=== PATIENT | male | born 1960 | race African-American/Black ===

== ENCOUNTER 2017-05-28 10:47 | Day surgery (SDC) | payer OTHER ==
[2017-05-27 14:33] VITALS: BMI 25.8
[~2017-05-28 10:47] MED LIST: ceFAZolin SODIUM 1 GM VIAL IVPB ONE
--- NOTE | 2017-05-28 11:49 | HP ---
History & Physical Update - History History: No Change - Physical Physical: No Change - Assessment Assessment: No Change - Plan Plan: No Change
--- NOTE | 2017-05-28 11:50 | OP ---
Operative Note - Note: Operative Date: 05/28/17 Pre-Operative Diagnosis: prostate cancer Operation: prostate cryoablation and cystoscopy Surgeon: Landry Germain Anesthesiologist/OFFAL TRIMMER: Maria Esther Nwe Anesthesia: General Estimated Blood Loss (mls): 0 Drains & Tubes with Location: 18 fr mirza Operative Report Dictated: Yes
[2017-05-28] MEDS ORDERED: oxyCODONE HCL 5 MG TABLET PO PRN ×2 (12:35)
[2017-05-28] MEDS ORDERED: ONDANSETRON 4 MG/2 ML VIAL IVPUSH PRN (12:35)
[2017-05-28] MEDS ORDERED: DEXAMETHASONE SOD PHOSPHATE 4 MG/1 ML VIAL ONE (12:47)
[2017-05-28] MEDS ORDERED: PROPOFOL 20 ML ONE (12:47)
[2017-05-28] MEDS ORDERED: LIDOCAINE HCL 2% 100 MG/5 ML DISP.SYRIN ONE (12:47)
[2017-05-28] MEDS ORDERED: ROCURONIUM BROMIDE 50 MG/5 ML VIAL ONE (12:47)
[2017-05-28] MEDS ORDERED: MIDAZOLAM HCL 2 MG/2 ML SINGLE DOSE VIAL ONE (12:48)
[2017-05-28] MEDS ORDERED: ceFAZolin SODIUM 1 GM VIAL IVPB ONE (13:40)
[2017-05-28] MEDS ORDERED: ceFAZolin SODIUM 1 GM VIAL ONE (13:49)
[2017-05-28 17:25] VITALS: PULSE 75; TEMP 98
[2017-05-28 17:59] VITALS: BP 138/80
--- NOTE | 2017-05-28 20:10 | OP ---
DATE OF OPERATION: 05/28/2017 PREOPERATIVE DIAGNOSIS: Prostate cancer. POSTOPERATIVE DIAGNOSIS: Prostate cancer. PROCEDURE: Prostate cryoablation and cystoscopy. SURGEON: Landry Wesley M.D. PRINTED CIRCUIT BOARD ASSEMBLER: None. ANESTHESIA: General. ANESTHESIOLOGIST: Maria Esther New M.D. SPECIMEN: None. CULTURES: None. DRAINS: An 18-Uzbek Dinh catheter. ESTIMATED BLOOD LOSS: Negligible. COMPLICATIONS: None. DESCRIPTION OF PROCEDURE: The patient was brought in the operating room and placed on the operating room table in the supine position. After administration of general anesthesia via endotracheal tube, intravenous antibiotics were administered. Sequential compression devices were placed. The patient was placed in the dorsal lithotomy position. The perineum was shaved first and the perineum and genitals were prepped and draped in usual sterile manner. An 18-Uzbek Dinh catheter was placed per urethra. Then, 10 mL were placed in the balloon and the bladder was filled with 300 mL of sterile normal saline and clamped. The transrectal ultrasound probe was inserted into the rectum and transrectal ultrasound of the prostate was done. Measurements were taken. Planning was done for the focal prostate cryoablation of the right side of the prostate. Once the plan was completed, the three cryoprobes were first tested and then inserted into the proper location. Now, two temperature sensors were placed, one in Denonvilliers' fascia and one in the external sphincter. Measurements were taken for length and each probe was set to the proper length. The Dinh catheter was removed and cystoscopy was performed. This demonstrated a normal anterior urethra. The prostatic urethra measured approximately 3.5 cm in length, demonstrating mild bilobar intrusion. There were no probes penetrating the prostatic urethra. The bladder was entered and thoroughly inspected. There were no foreign bodies, tumors, stones or inflammation in both ureteral orifices when the usual location with clear efflux bilaterally. No cryoprobes were seen within the bladder. Now, a Super Stiff guidewire was passed through the cystoscope into the bladder and the cystoscope was removed. The urethral warmer was now inserted over the guidewire and then the guidewire was removed. Urethral warming was started. Now, prostate cryoablation was done with two freeze-thaw cycles. At the end of the procedure, the probes were removed, leaving the urethral warmer in place for an additional 5 minutes. Direct pressure was placed on the perineum. Hemostasis was achieved. The urethral warmer was removed. A sterile compressive dressing of a 4 x 4 and Tegaderm was placed. Dinh catheter drainage was clear at the end of the procedure. After removing the urethral warmer, the 18-Uzbek Dinh catheter was replaced. He tolerated the procedure well and was transferred to recovery in stable condition. LANDRY WESLEY M.D. [id number]
== END 2017-05-28 17:30 | disposition home or self-care (01) ==
LOC: JASU-SURG 10:47
PROVIDERS: ATTEND Urology
PROC: 0V507ZZ Destruction of Prostate, Via Natural or Artificial Opening (ICD-10-PCS; principal; 2017-05-28 13:30)
DX: C61 Malignant neoplasm of prostate (principal)
CPT/HCPCS: 55873; C2618; 94760

== ENCOUNTER 2019-02-23 08:37 | Day surgery (SDC) | payer OTHER ==
[2019-02-22 13:40] VITALS: BMI 25.8
[2019-02-23] MEDS ORDERED: oxyCODONE HCL 5 MG TABLET PO PRN ×2 (08:58)
[2019-02-23] MEDS ORDERED: ONDANSETRON 4 MG/2 ML VIAL IVPUSH PRN (08:58)
[2019-02-23] MEDS ORDERED: LACTATED RINGERS SOLUTION 1,000 ML IV SCH (09:00)
[2019-02-23] MEDS ORDERED: PROPOFOL 20 ML ONE ×2 (09:58)
[2019-02-23] MEDS ORDERED: LIDOCAINE HCL/PF 2% SDV 5ML VIAL ONE (09:58)
[2019-02-23] MEDS ORDERED: PHENYLEPHRINE HCL 10 MG/1 ML SINGLE DOSE VIAL ONE (10:01)
[2019-02-23] MEDS ORDERED: EPHEDRINE SULFATE/0.9% NACL/PF 50 MG/10 ML SYRINGE NR ONE (10:02)
[2019-02-23] MEDS ORDERED: LIDOCAINE HCL 1%, 10 MG/ML (20ML VIAL) ONE (10:16)
[2019-02-23] MEDS ORDERED: BUPIVACAINE HCL/PF 0.5% (5 MG/ML) 30 ML VIAL IJ ONE ×3 (10:16→11:21)
[2019-02-23] MEDS ORDERED: MIDAZOLAM HCL 2 MG/2 ML SINGLE DOSE VIAL ONE (10:54)
[2019-02-23] MEDS ORDERED: ceFAZolin SODIUM 1 GM VIAL IVPB ONE (11:10)
[2019-02-23] MEDS ORDERED: LIDOCAINE HCL 1%, 10 MG/ML (20ML VIAL) NR ONE ×2 (11:22)
[2019-02-23] MEDS ORDERED: KETOROLAC TROMETHAMINE 30 MG/1 ML VIAL ONE (11:26)
--- NOTE | 2019-02-23 12:21 | OP ---
Operative Note - Note: Operative Date: 02/23/19 Pre-Operative Diagnosis: Bilateral inguinal hernias Operation: Bilateral inguinal hernia repair with mesh Post-Operative Diagnosis: Same as Pre-op Surgeon: Lenin Canela Sales Professional Bilingual: Kristopher Jay Anesthesiologist/VIDEO EDITOR: Maria Esther New Anesthesia: Local Estimated Blood Loss (mls): 5 Operative Report Dictated: Yes
--- NOTE | 2019-02-23 12:22 | SURG ---
Surgery Steam Hand Note Steam Hand: Kristopher Jay PA-C Date of Service: 02/23/19 Diagnosis: Bilateral inguinal hernias Procedure: Bilateral inguinal hernia repair with mesh I was present for the entirety of the operative procedure. For further detail, please refer to operative report. Visit type - Case Type Case Type: Scheduled - Emergency Emergency Visit: No - New patient This patient is new to me today: Yes Date on this admission: 02/23/19 - Critical Care Critical Care patient: No
--- NOTE | 2019-02-23 12:31 | OP ---
DATE OF OPERATION: 02/23/2019 PREOPERATIVE DIAGNOSIS: Bilateral inguinal hernia. POSTOPERATIVE DIAGNOSIS: Bilateral inguinal hernia. PROCEDURE: Bilateral inguinal hernia repair with a plug and a mesh. SURGEON: Lenin Canela MD RN CORRECTIONS: SVETLANA Summers ANESTHESIA: Local sedation. DESCRIPTION OF PROCEDURE: Patient was brought to the operating room. Intravenous antibiotic was given. Local with Marcaine was injected bilaterally. IV sedation was given. Incision was made. External oblique aponeurosis was opened, and there was a large hernia bilaterally. The spermatic cord structures were isolated from the pubic tubercle, and the Adali drain was used to track it, and there was a large direct hernia. On the right side it was larger than the left side. The posterior wall was really large, so it was initially repaired with 2-0 Prolene, a couple of sutures, and then the plug was put in, and this plug was sutured to the posterior wall. Then the flap piece of the mesh was used, and it was sutured to the pubic tubercle medially, conjoint tendon above, inguinal ligament below, and around the spermatic cord structure to form a new ring. A similar procedure was done on both sides then the external oblique was closed over the spermatic cord structure. Care was taken to avoid injury to the inguinal hernia. Once it was closed, subcutaneous tissue, skin were closed, and the patient went to the recovery room in stable condition. Gurinder [id number]
[2019-02-23 14:21] VITALS: TEMP 97.9
[2019-02-23 15:17] VITALS: BP 129/79; PULSE 73
== END 2019-02-23 15:20 | disposition home or self-care (01) ==
LOC: JASU-SURG 08:37
PROVIDERS: ATTEND Surgery Vascular Surgery
PROC: 0YUA0JZ Supplement Bilateral Inguinal Region with Synthetic Substitute, Open Approach (ICD-10-PCS; principal; 2019-02-23 11:00)
DX: K40.20 Bilateral inguinal hernia, without obstruction or gangrene, not specified as recurrent (principal)
CPT/HCPCS: 94760